=== PATIENT | female | born 1945 | race Caucasian/White ===

== ENCOUNTER → 2023-06-26 11:13 | Outpatient (CLI) | payer OTHER, SELFPAY ==
--- NOTE | 2023-06-26 11:17 | DI.MRI.S_ITS ---
PROCEDURE: MR HIP RT WO CON INDICATIONS: RIGHT HIP PAIN / HIP ARTHRITIS TECHNIQUE: Noncontrast coronal T1 spin echo and STIR through the bony pelvis. Coronal and axial T2 fast spin echo with fat saturation, sagittal T1 spin echo, and oblique axial T2 fast spin echo with fat saturation through the hip. COMPARISON: [facility], CR, XR PELVIS WITH LATERAL HIP RIGHT, 06/03/2023, 11:26. FINDINGS: Image quality: Excellent. Bones and joints: Bone marrow of the pelvic ring and proximal femurs show normal signal throughout. No intraosseous lesions or fractures. No avascular necrosis of the femoral heads. Degenerative disc disease and facet hypertrophy are seen in the included lumbar spine. Degenerative changes are seen at the left sacroiliac joint with subchondral edema. Small amount of fluid is seen in the region of the left iliopsoas bursa on large [id number] coronal images. Tendons and ligaments: The gluteus medius and minimus tendons demonstrate mild tendinosis. The proximal iliotibial band appears intact. The iliopsoas tendon appears intact, without adjacent bursal fluid collections. The origin of the hamstring tendon demonstrates mild tendinosis. The direct and indirect heads of the rectus femoris muscle origin appear intact. Labrum and cartilage: There is diffuse labral degeneration and chronic degenerative tearing. High-grade cartilage loss is seen at the anterosuperior aspect of the hip with subchondral cystic changes and marginal osteophyte formation. A small right hip effusion is present. Soft tissues: Visualized muscles demonstrate normal bulk and internal signal. Quadratus femoris muscle demonstrates no internal edema to suggest ischiofemoral impingement. The proximal sciatic neurovascular bundle appears intact. The included portions of the pelvis demonstrate no acute abnormality. Fibroid uterus. IMPRESSION: 1. 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 2. Mild right distal gluteus medius and minimus tendinosis. 3. Mild right proximal hamstring tendinosis. 4. Degenerative changes in the left sacroiliac joint and included lumbar spine. 5. Suspected small left iliopsoas bursal effusion seen on coronal images only. Approved by: Kade Melara M.D. on 06/28/2023 at 8:55
== END ==
PROVIDERS: PCP Internal Medicine; Referring Provider Orthopaedic Surgery; Visit Provider Orthopaedic Surgery
DX: M25.551 Pain in right hip (principal); M16.10 Unilateral primary osteoarthritis, unspecified hip; M94.251 Chondromalacia, right hip; M25.451 Effusion, right hip; M47.816 Spondylosis without myelopathy or radiculopathy, lumbar region; M47.818 Spondylosis without myelopathy or radiculopathy, sacral and sacrococcygeal region
CPT/HCPCS: 73721